=== PATIENT | female | born 1940 | race Two or more races ===

== ENCOUNTER 2019-07-19 12:20 | Emergency (ER) | payer OTHER ==
[~2019-07-19] VITALS: Ht 165.1 cm; Wt 73.9 kg
[2019-07-19] MEDS ORDERED: SYNTHROID75 MCG (12:38)
== END 2019-07-19 18:04 | disposition home or self-care (01) ==
LOC: ER 12:20
DX: S00.83XA Contusion of other part of head, initial encounter (principal); S40.012A Contusion of left shoulder, initial encounter; S20.212A Contusion of left front wall of thorax, initial encounter; W18.39XA Other fall on same level, initial encounter; Y93.89 Activity, other specified; Y92.89 Other specified places as the place of occurrence of the external cause; Y99.8 Other external cause status